=== PATIENT | male | born 1945 | race Caucasian/White ===

== ENCOUNTER 2016-10-24 21:18 | Inpatient (IN) | payer MEDICARE, OTHER ==
--- NOTE | ~2016-10-24 | EGD ---
EGD REPORT [facility] [address] [place]. [address] NAME: LIUDMILA APARICIO : [birth year] STATUS : ADM IN PAT#: [id number] AGE: 71 ADM/REG DATE : 10/25/16 MR#: [id number] REPORT SERV DATE: 10/29/16 DICTATED BY: STACIE WHEELER DATE: 10/29/16 REPORT STATUS : Draft TRANSCRIBED BY: [employer] DATE: 10/29/16 [facility] Patient Name: iLudmila Aparicio Date of : 1945 Attending MD: STACIE WHEELER, Procedure Date No Time: 10/29/2016 Procedure: Upper GI endoscopy Indications: Dysphagia Medicines: Monitored Anesthesia Care Complications: No immediate complications. Estimated blood loss: None. Procedure: Pre-Anesthesia Assessment: - ASA Grade Assessment: III - A patient with severe systemic disease. After obtaining informed consent, the endoscope was passed under direct vision. Throughout the procedure, the patient's blood pressure, pulse, and oxygen saturations were monitored continuously. The GIF [id number] was introduced through the mouth, and advanced to the second part of duodenum. The upper GI endoscopy was accomplished without difficulty. The patient tolerated the procedure well. Findings: LA Grade D (one or more mucosal breaks involving at least 75% of esophageal circumference) esophagitis with no bleeding was found in the entire esophagus. Biopsies were taken with a cold forceps for histology. Verification of patient identification for the specimen was done. Estimated blood loss was minimal. A 4 cm hiatus hernia was present. The exam of the stomach was otherwise normal. The cardia and gastric fundus were normal on retroflexion. The examined duodenum was normal. Impression: - LA Grade D esophagitis. Biopsied. - Hiatus hernia. - Normal examined duodenum. Recommendation: - Return to previous diet. - Continue present medications. - Use Protonix (pantoprazole) 40 mg PO BID. - Await pathology results. R/o Viral esophagitis. Procedure Code(s): --- Professional --- 17190, Esophagogastroduodenoscopy, flexible, transoral; with biopsy, single or multiple EGD REPORT [facility] [address] [place] [address] [place] [address] NAME: LIUDMILA APARICIO : [birth year] STATUS : ADM IN [facility]#: [id number] AGE: 71 ADM/REG DATE : 10/25/16 MR#: [id number] REPORT SERV DATE: 10/29/16 DICTATED BY: STACIE WHEELER DATE: 10/29/16 REPORT STATUS : Draft TRANSCRIBED BY: [employer] DATE: 10/29/16 Diagnosis Code(s): --- Professional --- K20.9, Esophagitis, unspecified K44.9, Diaphragmatic hernia without obstruction or gangrene R13.10, Dysphagia, unspecified CPT copyright 2013 [employer]. All rights reserved. The codes documented in this report are preliminary and upon health information coder review may be revised to meet current compliance requirements. STACIE WHEELER, 10/29/2016 1:46 PM Number of Addenda: 0 Note Initiated On: 10/29/2016 1:20 PM Scope Withdrawal Time 0 hours 0 minutes 0 seconds [address] [place] [address]
--- NOTE | ~2016-10-24 | DS ---
Discharge Summary [facility] [address] [place]. [address] NAME: LIUDMILA DAIGLE : 41 STATUS : DIS IN PAT#: [id number] AGE: 71 ADM/REG DATE : 10/25/16 MR#: [id number] REPORT SERV DATE: 10/30/16 DICTATED BY: SONIA HERNANDEZ DATE: 10/30/16 REPORT STATUS : Draft TRANSCRIBED BY: MODL DATE: 10/30/16 ADMISSION DATE: 10/25/2016 DISCHARGE DATE: 10/30/2016 TRACK SUBWAY REPAIR SUPERVISOR: Dr. Brittny FERRER. DISCHARGE DIAGNOSES: 1. Functional quadriparesis due to acute severe flare-up of rheumatoid arthritis. 2. Acute severe flare-up of rheumatoid arthritis. 3. Acute esophagitis. 4. Anemia of chronic disease. 5. Sacral decubitus present on admission. 6. Severe protein-calorie malnutrition. HISTORY: This gentleman's two years ago. His brother last March. He has been anorexic, discouraged and he developed severe pain in his MCPs, wrists, elbows, shoulders, knees, had gotten to where he could hardly do anything other than lay in the bed or sit on the couch. His sister has been trying to get him to come to the hospital and he finally did present to the emergency room at [facility]. At that time, his white count was 18.[address] of the abdomen showed some possible thickening of the gallbladder. He is referred to our team for inpatient care. Initially, there was concern that he might have sepsis. His procalcitonin initially was 0.92. His white count quickly came down from 18 to 15 to 13 and normalized. Urinalysis had 6 white blood cells, protein of 30, small amount of bilirubin, blood culture with no growth. He had a pressure sore on his sacrum, which was present on admission. Gallbladder ultrasound revealed sludge in the gallbladder with mild thickening of the gallbladder wall. No pericholecystic fluid. Negative Webb sign. No biliary duct dilatation. Vascular calcifications suspected in the right kidney. CT scan of the brain showed marked cerebral atrophy. No acute abnormalities. The patient had a chest x-ray on admission, which was unremarkable. The patient was noted to have severe pain in his MCPs, wrists, elbows, shoulders. Rheumatoid factor was elevated at 2580. The patient was started by our partner on some prednisone with dramatic improvement in his pain in his joints and he started to be able to move his hands, wrists, elbows, and shoulders, although he did still have a moderate amount of pain in his right shoulder. X-ray of the right shoulder showed no dislocation or fracture. No erosive changes. He was noted to have severe protein-calorie malnutrition. Pre-albumin was 8.6, serum albumin 1.1. He is given nutrition and supplements, and his appetite has improved significantly here. He was noted to have anemia with his hemoglobin around 8.5. His iron level was normal at 47, percent iron saturation elevated at 53, TIBC was low at 88, ferritin elevated at 739, B12 normal at 530. RPR nonreactive. HIV negative. TSH normal at 1.060. Renal function normal. This is consistent with anemia of chronic disease and probably Discharge Summary [address] [place]. [address] NAME: LIUDMILA DAIGLE : 41 STATUS : DIS IN PAT#: [id number] AGE: 71 ADM/REG DATE : 10/25/16 MR#: [id number] REPORT SERV DATE: 10/30/16 DICTATED BY: SONIA HERNANDEZ DATE: 10/30/16 REPORT STATUS : Draft TRANSCRIBED BY: [employer] DATE: 10/30/16 related to his rheumatoid arthritis, it has been uncontrolled. It is also aggravated probably by his nutritional deficits. He is felt to need inpatient care. He was having some vague dysphagia-type symptoms, so he was seen by GI and Dr. Mart did an EGD on 10/29/2016 showing LA grade D esophagitis with hiatal hernia. They recommended Protonix 40 mg b.i.d. and Carafate slurry for two weeks. They will follow up the biopsy results and let the patient and his providers know if there are any problems with that. Because of his weakness, he needs inpatient rehab. Those arrangements have been made at this time. DISCHARGE MEDICATIONS: Melatonin 6 mg at bedtime p.r.n., Protonix 40 mg b.i.d., Carafate 1 g a.c. and h.s. as a slurry for two weeks, prednisone 20 mg daily for his rheumatoid arthritis, Tylenol 650 q.4 hours p.r.n. mild pain. Twenty five minutes were spent with the patient and with discharge planning. SAMMY/TRINITY Sonia Hernandez M.D. / [id number] CC: Sonia Hernandez M.D. [facility] Joel Mart MD
--- NOTE | ~2016-10-24 | HP ---
History And Physical [place] [id number] [place]. [address] NAME: LIUDMILA DAIGLE : [birth year] STATUS : ADM IN PAT#: [id number] AGE: 71 ADM/REG DATE : 10/25/16 MR#: [id number] REPORT SERV DATE: 10/25/16 DICTATED BY: LEVI SHIPMAN DATE: 10/25/16 REPORT STATUS : Draft TRANSCRIBED BY: MODL DATE: 10/25/16 DATE OF ADMISSION: 10/25/2016 CHIEF COMPLAINT: A 71-year-old male with really no past medical history and no primary care physician, now presenting with increasing debilitation and inability to get out of the bed with sacral decubitus ulcer and increasing arthritis. HISTORY OF PRESENT ILLNESS: The patient's history was obtained through an interview with the patient and sister. There were no previous medical records to review. The patient's about two years ago, and then his brother in March of 2016. Both of these events have caused a decline in the patient's overall will to live, it seems, and his mental and physical health. The patient's simply says "sometimes I just do not care." He has lost about 20 pounds in the last six months alone. He has a very poor appetite. He has mostly been lying in his bed or sitting in a couch but then for the last two weeks straight, he has been unable to get out of the bed at all. His sister has been visiting him to urge him to come to the hospital or see his doctor, but he has refused until the night of admission, and he states that he wonders if he needs to go to a nursing facility to be cared for. He has noticed soreness under his sacrum. He did not know that he had an ulceration there. It only hurts minimally. His main complaint has been increasing arthritis over the last several months. He thinks that it mostly affects his knees, but it also affects the hips and the shoulders but also "all over," the patient seeming to imply that practically every joint of his body aches to some degree. He describes it as a 10/10 severity and an aching stiff quality. He has had no abdominal pain. No chest pain. He describes dyspnea on exertion with a slight nonproductive cough. No change of bowel or bladder habit. No headache. One complaint has been dysphagia with difficulty swallowing with no pain. REVIEW OF SYSTEMS: Otherwise, a 14-point review of systems was obtained and was negative. PAST MEDICAL HISTORY: 1. Arthritis. 2. No cardiac disease, no lung disease. PAST SURGICAL HISTORY: Ankle surgery. History And Physical [place] [address] [place]. [address] NAME: ILUDMILA DAIGLE : [birth year] STATUS : ADM IN [facility]#: [id number] AGE: 71 ADM/REG DATE : 10/25/16 MR#: [id number] REPORT SERV DATE: 10/25/16 DICTATED BY: LEVI SHIPMAN DATE: 10/25/16 REPORT STATUS : Draft TRANSCRIBED BY: [employer]ITY DATE: 10/25/16 ALLERGIES: NO KNOWN DRUG ALLERGIES. SOCIAL HISTORY: The patient is a smoker. Does not drink alcohol. His two years ago. His brother in March 2016. He lives alone. 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 Lives in [place], [place]. His sister is supportive and looks after him as best she can. He has no biological children. FAMILY HISTORY: Brother of a myocardial infarction. Father likely suffered from depression, mother with Alzheimer's dementia. CURRENT MEDICATIONS: PRN Aleve. PHYSICAL EXAMINATION: VITAL SIGNS: Temperature 97.6, pulse 109, blood pressure 124/73, respiratory rate 15, O2 saturation 96% on room air. GENERAL: A chronically ill-appearing male, even cachectic in appearance, but in no evidence of acute distress at this time. HEENT: The patient has sunken eyes. Pupils equal, round, and reactive to light. No conjunctival pallor. No scleral icterus. Nares are patent. Oropharynx is clear of obstruction. Dry mucous membranes. NECK: Trachea midline. No thyromegaly. LYMPH: No cervical lymphadenopathy. No supraclavicular lymphadenopathy. No inguinal lymphadenopathy. RESPIRATORY: Clear to auscultation at bases. No wheezes, rales, or rhonchi. Normal respiratory effort. CARDIOVASCULAR: Tachycardic, regular rhythm. No murmurs, rubs, or gallops. No extremity edema is appreciated. ABDOMEN: Minimal epigastric and right upper quadrant abdominal pain but by no means guarding. No rebound. Nondistended. No hepatosplenomegaly. DERMATOLOGICAL: The patient's sacrum has an ulceration with about a centimeter area of purulent drainage but also has surrounding eschar, necrotic skin, and surrounding erythema, heat, swelling, and tenderness. Also chronic-appearing ulceration on his right ankle but without surrounding erythema or purulent drainage. Otherwise, warm and dry extremities. No pallor. No cyanosis. PSYCHIATRIC: Notably flat affect. He admits to feeling depressed with anhedonia but no suicidal ideation. He is alert, appropriate, oriented x3. LABORATORY DATA: White blood cell count 18.9, hemoglobin 11, hematocrit 36, platelets 465. Sodium 141, potassium 3.9, chloride 105, bicarb 27, BUN 24, creatinine 0.6, glucose 151. Urinalysis negative for infection. Procalcitonin 0.9. Albumin 1.3. Troponin 0.67. Lactic acid 1.8. Total bilirubin 1.4. Alkaline phosphatase 155, AST 62. Urine drug screen negative. Influenza negative. Urinalysis negative for infection. STUDIES: 1. CT scan of the abdomen shows possible thickening of the gallbladder? 2. EKG by my own evaluation shows sinus tachycardia. 3. Chest x-ray by my own evaluation shows no acute cardiopulmonary process. History And Physical [address] [address] NAME: LIUDMILA DAIGLE : [birth year] STATUS : ADM IN [facility]#: [id number] AGE: 71 ADM/REG DATE : 10/25/16 MR#: [id number] REPORT SERV DATE: 10/25/16 DICTATED BY: LEVI SHIPMAN DATE: 10/25/16 REPORT STATUS : Draft TRANSCRIBED BY: [employer]ITY DATE: 10/25/16 ASSESSMENT AND PLAN: 1. Sepsis with white blood cell count of 18.9 and tachycardia. Check blood cultures. Check wound cultures. Place on IV vancomycin, IV Rocephin. 2. Sacral decubitus ulcer with cellulitis. Check wound culture. Obtain a Wound Care consult. Turn q.2 hours. 3. Abnormal gallbladder. Check an ultrasound of the gallbladder to further evaluate. Consider Surgery consult? Noted the patient has elevated liver enzymes, so we will follow these. 4. Functional paraplegia. Obtain a physical therapy evaluation. 5. Dysphagia. Obtain a speech therapy evaluation for swallowing. 6. Arthritis. Check an ESR. Should we consider PMR in the differential diagnosis? 7. Hypoalbuminemia. Check prealbumin and obtain a Nutrition consult. KPL/MODL Levi Shipman M.D. / [id number]
[2016-10-24 20:09] LABS: BASOPHILS 0.2 %; BASOPHILS ABSOLUTE 0.03 10/3/uL (0.0-0.16); EOSINOPHILS 0.1 %; EOSINOPHILS ABSOLUTE 0.02 10/3/uL (0.0-0.53); ER CBC TAT 0 Hrs 11 Mins; HEMATOCRIT 36.3 % (40.0-51.0); HEMOGLOBIN 11.5 g/dL (13.6-17.8); IMMATURE GRANULOCYTES 0.6 %; IMMATURE GRANULOCYTES ABSOLUTE 0.11 10/3/uL (0.0-0.11); LYMPHOCYTES 10.2 %; LYMPHOCYTES ABSOLUTE 1.93 10/3/uL (0.67-4.30); MEAN CORPUS HGB CONC 31.7 g/dL (32.0-36.0); MEAN CORPUSCULAR HEMOGLOB 27.4 pg (26.0-34.0); MEAN CORPUSCULAR VOLUME 86.4 fL (80-100); MEAN PLATELET VOLUME 10.5 fL (9.2-13.0); MONOCYTES 4.2 %; NEUTROPHILS 84.7 %; NEUTROPHILS ABSOLUTE 16.01 10/3/uL (2.02-8.40); PLATELET COUNT 465 10/3/uL (150-400); WHITE BLOOD CELLS 18.9 10/3/uL (4.5-10.5)
[2016-10-24 20:10] LABS: MANUAL DIFF NO %
[2016-10-24 20:16] LABS: INTERNATIONAL NORMAL RATI 1.3 UNITS (-); PROTIME (NOT ORD) 15.8 SEC (12.0-14.5)
[2016-10-24 20:29] LABS: ALBUMIN 1.3 G/DL (3.5-5.0); ALKALINE PHOSPHATASE 155 U/L (45-117); BUN (BLOOD UREA NITROGEN) 24 MG/DL (6-23); CALCIUM, SERUM 7.8 MG/DL (8.5-10.4); CHLORIDE, SERUM 105 MMOL/L (96-112); CO2 (CARBON DIOXIDE) 27 MMOL/L (24-34); CREATININE 0.57 MG/DL (0.70-1.30); DIRECT BILIRUBIN 0.9 MG/DL (0.0-0.4); GFR AFRICAN AMERICAN 118 ML/MIN (>=60); GFR NON AFRICAN AMERICAN 102 ML/MIN (>=60); GLUCOSE, SERUM 151 MG/DL (60-99); INDIRECT BILIRUBIN(NOT ORDER) 0.5 MG/DL (0.1-0.9); POTASSIUM, SERUM 3.9 MMOL/L (3.5-5.3); SGOT(AST) 62 U/L (5-40); SGPT(ALT) 40 U/L (5-65); SODIUM, SERUM 141 MMOL/L (135-148); TOTAL BILIRUBIN 1.4 MG/DL (0-1.2); TOTAL PROTEIN 6.4 G/DL (6.0-8.5)
[2016-10-24 20:34] LABS: ACETAMINOPHEN LEVEL (TYLENOL) < 2.0 MCG/ML (10.0-20.0); CHEST PAIN PROFILE TAT 0 Hrs 36 Mins; SALICYLATE < 1.7 MG/DL (-); TROPONIN I 0.67 NG/ML (<0.05)
[2016-10-24 20:35] LABS: ALCOHOL < 10 MG/DL (0)
[2016-10-24 20:55] LABS: INFLUENZA A SCREEN NEGATIVE (NEGATIVE); INFLUENZA B SCREEN NEGATIVE (NEGATIVE)
[2016-10-24 21:03] LABS: SEGMENTED NEUTROPHIL (0) 88 %; TOTAL NUCLEATED CELLS 100
[2016-10-24 21:10] LABS: ANISOCYTOSIS 1+ (5-10/OIF) (0-5/OIF); BAND NEUTROPHILS 2 %; BASOPHILS 1 %; BASOPHILS ABSOLUTE (CALC) 0.19 10/3/uL (0.0-0.16); ER DIFF TAT 1 Hrs 05 Mins; LYMPHOCYTES 6 %; LYMPHOCYTES ABSOLUTE (CALC) 1.13 10/3/uL (0.67-4.30); MONOCYTES 3 %; MONOCYTES ABSOLUTE (CALC) 0.57 10/3/uL (0.21-1.20); NEUTROPHILS ABSOLUTE (CALC) 17.01 10/3/uL (2.02-8.40); POIKILOCYTOSIS 1+ (5-10/OIF) (0-5/OIF)
[2016-10-24 21:11] LABS: PLATELET ESTIMATE SLT INC (ADEQUATE)
[2016-10-24] MEDS ORDERED: ALEVE220 MG PO (21:46)
[2016-10-24 21:59] LABS: PROCALCITONIN 0.92 ng/mL (<0.5)
[2016-10-24 22:27] LABS: CPK (IF ELEVATED MB BANDS) 107 U/L (0-200)
[2016-10-24 22:54] LABS: LACTATE 1.8 MMOL/L (0.3-2.4)
[2016-10-25 00:18] LABS: ASCORBIC ACID (UR NOT ORDER) NEG (NEG); BILIRUBIN, URINE SMALL (NEG); ER URINALYSIS TAT 0 Hrs 00 Mins; KETONE, URINE NEGATIVE (NEG); LEUKOCYTE ESTERASE(NOT OR NEG (NEG); NITRITE (URINE) NEG (NEG); WBC (NOT ORDERED) (RFLEX) 6 (0-5)
[2016-10-25 04:51] LABS: AMPHETAMINES (NOT ORD) NEG (NEG); BARBITURATES (NOT ORDERED NEG (NEG); BENZODIAZEPINES (NOT ORD) NEG (NEG); CANNABINOIDS (THC) NEG (NEG); COCAINE (NOT ORDERED) NEG (NEG); OPIATES NEG (NEG); PHENCYCLIDINE(PCP) NEG (NEG); TRICYCLICS NEG (NEG)
[2016-10-25 09:14] LABS: BASOPHILS 0.2 %; BASOPHILS ABSOLUTE 0.03 10/3/uL (0.0-0.16); EOSINOPHILS 1.1 %; EOSINOPHILS ABSOLUTE 0.17 10/3/uL (0.0-0.53); IMMATURE GRANULOCYTES 0.6 %; LYMPHOCYTES 10.8 %; LYMPHOCYTES ABSOLUTE 1.68 10/3/uL (0.67-4.30); MEAN CORPUS HGB CONC 31.9 g/dL (32.0-36.0); MEAN CORPUSCULAR HEMOGLOB 26.9 pg (26.0-34.0); MEAN CORPUSCULAR VOLUME 84.3 fL (80-100); MEAN PLATELET VOLUME 10.2 fL (9.2-13.0); MONOCYTES 6.1 %; MONOCYTES ABSOLUTE 0.95 10/3/uL (0.21-1.20); NEUTROPHILS 81.2 %; NEUTROPHILS ABSOLUTE 12.68 10/3/uL (2.02-8.40); PLATELET COUNT 390 10/3/uL (150-400); RBC DISTRIBUTION WIDTH 17.9 % (12.0-16.0); WHITE BLOOD CELLS 15.6 10/3/uL (4.5-10.5)
[2016-10-25 09:16] LABS: HEMATOCRIT 27.9 % (40.0-51.0); HEMOGLOBIN 8.9 g/dL (13.6-17.8); MANUAL DIFF NO %; RED CELL COUNT 3.31 10/6/uL (4.7-6.1)
[2016-10-25 09:17] LABS: INTERNATIONAL NORMAL RATI 1.2 UNITS (-); PARTIAL THROMBO TIME 24.5 SEC (22.5-37.2); PROTIME (NOT ORD) 15.3 SEC (12.0-14.5)
[2016-10-25 09:31] LABS: A/G RATIO 0.3 (0.7-1.9); ALBUMIN 1.1 G/DL (3.5-5.0); ALKALINE PHOSPHATASE 130 U/L (45-117); BUN (BLOOD UREA NITROGEN) 19 MG/DL (6-23); CALCIUM, SERUM 7.3 MG/DL (8.5-10.4); CHLORIDE, SERUM 111 MMOL/L (96-112); CO2 (CARBON DIOXIDE) 23 MMOL/L (24-34); CPK 62 U/L (0-200); CREATININE 0.29 MG/DL (0.70-1.30); GFR AFRICAN AMERICAN 156 ML/MIN (>=60); GFR NON AFRICAN AMERICAN 134 ML/MIN (>=60); GLUCOSE, SERUM 85 MG/DL (60-99); POTASSIUM, SERUM 3.7 MMOL/L (3.5-5.3); PREALBUMIN 8.6 MG/DL (17.0-43.0); SGOT(AST) 58 U/L (5-40); SGPT(ALT) 34 U/L (5-65); SODIUM, SERUM 144 MMOL/L (135-148); TOTAL BILIRUBIN 1.1 MG/DL (0-1.2); TOTAL PROTEIN 5.1 G/DL (6.0-8.5)
[2016-10-25 09:50] LABS: SED RATE 91 MM/HR (0-15)
[2016-10-26 06:30] LABS: BASOPHILS 0.2 %; BASOPHILS ABSOLUTE 0.02 10/3/uL (0.0-0.16); EOSINOPHILS 1.2 %; EOSINOPHILS ABSOLUTE 0.15 10/3/uL (0.0-0.53); HEMATOCRIT 29.5 % (40.0-51.0); HEMOGLOBIN 9.1 g/dL (13.6-17.8); IMMATURE GRANULOCYTES 0.5 %; IMMATURE GRANULOCYTES ABSOLUTE 0.06 10/3/uL (0.0-0.11); LYMPHOCYTES 14.1 %; LYMPHOCYTES ABSOLUTE 1.84 10/3/uL (0.67-4.30); MEAN CORPUS HGB CONC 30.8 g/dL (32.0-36.0); MEAN CORPUSCULAR HEMOGLOB 26.8 pg (26.0-34.0); MEAN CORPUSCULAR VOLUME 86.8 fL (80-100); MEAN PLATELET VOLUME 10.3 fL (9.2-13.0); MONOCYTES 6.5 %; MONOCYTES ABSOLUTE 0.85 10/3/uL (0.21-1.20); NEUTROPHILS 77.5 %; NEUTROPHILS ABSOLUTE 10.09 10/3/uL (2.02-8.40); PLATELET COUNT 420 10/3/uL (150-400); RBC DISTRIBUTION WIDTH 18.1 % (12.0-16.0)
[2016-10-26 06:31] LABS: MANUAL DIFF NO %
[2016-10-26 06:38] LABS: BUN (BLOOD UREA NITROGEN) 15 MG/DL (6-23); CALCIUM, SERUM 7.3 MG/DL (8.5-10.4); CHLORIDE, SERUM 110 MMOL/L (96-112); CO2 (CARBON DIOXIDE) 23 MMOL/L (24-34); CREATININE 0.23 MG/DL (0.70-1.30); GFR AFRICAN AMERICAN 171 ML/MIN (>=60); GFR NON AFRICAN AMERICAN 148 ML/MIN (>=60); GLUCOSE, SERUM 80 MG/DL (60-99); POTASSIUM, SERUM 3.5 MMOL/L (3.5-5.3); SODIUM, SERUM 145 MMOL/L (135-148)
[2016-10-27 06:14] LABS: BASOPHILS 0.3 %; BASOPHILS ABSOLUTE 0.03 10/3/uL (0.0-0.16); HEMATOCRIT 27.4 % (40.0-51.0); HEMOGLOBIN 8.6 g/dL (13.6-17.8); IMMATURE GRANULOCYTES 0.5 %; IMMATURE GRANULOCYTES ABSOLUTE 0.05 10/3/uL (0.0-0.11); LYMPHOCYTES 21.2 %; LYMPHOCYTES ABSOLUTE 2.09 10/3/uL (0.67-4.30); MEAN CORPUS HGB CONC 31.4 g/dL (32.0-36.0); MEAN CORPUSCULAR HEMOGLOB 27.4 pg (26.0-34.0); MEAN CORPUSCULAR VOLUME 87.3 fL (80-100); MEAN PLATELET VOLUME 10.1 fL (9.2-13.0); MONOCYTES 8.2 %; MONOCYTES ABSOLUTE 0.81 10/3/uL (0.21-1.20); NEUTROPHILS 67.8 %; NEUTROPHILS ABSOLUTE 6.66 10/3/uL (2.02-8.40); PLATELET COUNT 435 10/3/uL (150-400); RBC DISTRIBUTION WIDTH 18.2 % (12.0-16.0); RED CELL COUNT 3.14 10/6/uL (4.7-6.1); WHITE BLOOD CELLS 9.8 10/3/uL (4.5-10.5)
[2016-10-27 06:16] LABS: MANUAL DIFF NO %
[2016-10-27 06:23] LABS: BUN (BLOOD UREA NITROGEN) 13 MG/DL (6-23); CALCIUM, SERUM 7.1 MG/DL (8.5-10.4); CHLORIDE, SERUM 111 MMOL/L (96-112); CO2 (CARBON DIOXIDE) 25 MMOL/L (24-34); CREATININE 0.21 MG/DL (0.70-1.30); GFR AFRICAN AMERICAN 178 ML/MIN (>=60); GFR NON AFRICAN AMERICAN 154 ML/MIN (>=60); GLUCOSE, SERUM 89 MG/DL (60-99); POTASSIUM, SERUM 3.3 MMOL/L (3.5-5.3); SODIUM, SERUM 147 MMOL/L (135-148)
[2016-10-27 11:03] LABS: ANA TITER <1:40 TITER
[2016-10-28 05:25] LABS: BUN (BLOOD UREA NITROGEN) 13 MG/DL (6-23); CALCIUM, SERUM 7.1 MG/DL (8.5-10.4); CHLORIDE, SERUM 108 MMOL/L (96-112); CO2 (CARBON DIOXIDE) 25 MMOL/L (24-34); CREATININE 0.23 MG/DL (0.70-1.30); GFR AFRICAN AMERICAN 171 ML/MIN (>=60); GFR NON AFRICAN AMERICAN 148 ML/MIN (>=60); GLUCOSE, SERUM 87 MG/DL (60-99); POTASSIUM, SERUM 3.7 MMOL/L (3.5-5.3); SODIUM, SERUM 143 MMOL/L (135-148)
[2016-10-28 05:27] LABS: BASOPHILS 0.2 %; BASOPHILS ABSOLUTE 0.02 10/3/uL (0.0-0.16); EOSINOPHILS 1.6 %; EOSINOPHILS ABSOLUTE 0.17 10/3/uL (0.0-0.53); HEMATOCRIT 26.5 % (40.0-51.0); HEMOGLOBIN 8.4 g/dL (13.6-17.8); IMMATURE GRANULOCYTES 0.3 %; IMMATURE GRANULOCYTES ABSOLUTE 0.03 10/3/uL (0.0-0.11); LYMPHOCYTES 24.4 %; LYMPHOCYTES ABSOLUTE 2.65 10/3/uL (0.67-4.30); MEAN CORPUS HGB CONC 31.7 g/dL (32.0-36.0); MEAN CORPUSCULAR HEMOGLOB 27.5 pg (26.0-34.0); MEAN CORPUSCULAR VOLUME 86.6 fL (80-100); MEAN PLATELET VOLUME 10.2 fL (9.2-13.0); MONOCYTES 7.8 %; MONOCYTES ABSOLUTE 0.85 10/3/uL (0.21-1.20); NEUTROPHILS 65.7 %; NEUTROPHILS ABSOLUTE 7.15 10/3/uL (2.02-8.40); PLATELET COUNT 454 10/3/uL (150-400); RBC DISTRIBUTION WIDTH 18.4 % (12.0-16.0); RED CELL COUNT 3.06 10/6/uL (4.7-6.1); WHITE BLOOD CELLS 10.9 10/3/uL (4.5-10.5)
[2016-10-28 05:32] LABS: MANUAL DIFF NO %
[2016-10-28 16:39] LABS: % IRON SAT 53 % (20-50); FERRITIN 739 NG/ML (26-388); IRON BINDING CAPACITY 88 MCG/DL (250-450); IRON, SERUM 47 MCG/DL (35-150)
[2016-10-28 16:41] LABS: TROPONIN I 0.16 NG/ML (<0.05)
[2017-03-09] MEDS ORDERED: MELA3 PO (13:50)
[2017-03-09] MEDS ORDERED: CALTRA600D PO (13:50)
[2017-03-09] MEDS ORDERED: VITC500 PO (13:51)
[2017-03-09] MEDS ORDERED: VITAMIN D31000 UNIT PO (13:51)
[2017-03-09] MEDS ORDERED: MULTIVITAMI1 PO (13:51)
[2017-03-09] MEDS ORDERED: REM15 PO (13:52)
[2017-03-09] MEDS ORDERED: P10 PO (13:52)
[2017-03-09] MEDS ORDERED: EFFEX75 PO (13:53)
[2017-03-09] MEDS ORDERED: ALBUTEROL NEBULIZER (13:54)
[2017-03-09] MEDS ORDERED: NORCO1 TA1 PO (13:55)
[2017-03-09] MEDS ORDERED: SINGULAIR1 PO (13:56)
[2017-03-09] MEDS ORDERED: ASA5GR PO (13:57)
[2017-03-09] MEDS ORDERED: LOP25 PO (13:57)
[2017-03-09] MEDS ORDERED: RANITIDINE300 MG PO (13:58)
== END 2016-10-30 15:47 | DRG 545 ==
LOC: ER 21:18 → 1SO 10-25 00:44
PROVIDERS: Hospitalist; Internal Medicine Gastroenterology; Nurse Practitioner
PROC: 0DB58ZX Excision of Esophagus, Via Natural or Artificial Opening Endoscopic, Diagnostic (ICD-10-PCS; principal; 2016-10-29 13:37)
DX: M05.79 Rheumatoid arthritis with rheumatoid factor of multiple sites without organ or systems involvement (principal); E43 Unspecified severe protein-calorie malnutrition; R53.2 Functional quadriplegia; R65.10 Systemic inflammatory response syndrome (SIRS) of non-infectious origin without acute organ dysfunction; L03.317 Cellulitis of buttock; Z68.1 Body mass index [BMI] 19.9 or less, adult; L89.152 Pressure ulcer of sacral region, stage 2; J44.9 Chronic obstructive pulmonary disease, unspecified; E88.09 Other disorders of plasma-protein metabolism, not elsewhere classified; L89.511 Pressure ulcer of right ankle, stage 1; R13.10 Dysphagia, unspecified; R62.7 Adult failure to thrive; D63.8 Anemia in other chronic diseases classified elsewhere; K20.9 Esophagitis, unspecified; K44.9 Diaphragmatic hernia without obstruction or gangrene; F17.210 Nicotine dependence, cigarettes, uncomplicated; Z23 Encounter for immunization; Z91.81 History of falling
CPT/HCPCS: 70450; 71010; 73030-RT; 74176; 74230; 76705; 80048; 80053; 80076; 80202; 80305; 80307; 81001; 82550; 82607; 82728; 82962; 83540; 83550; 83605; 83690; 83735; 83880; 84134; 84145; 84443; 84484; 85025; 85610; 85652; 85730; 86039; 86431; 86592; 87040; 87070; 87077; 87186; 87205; 87389; 87804; 88305; 90662; 92611-GN; 93005; 96374; 97110-GP; 97116-GP; 97162-GP; 97165-GO; 97530-GP; 99285; A9270-GY; G0008; G8978-CL-GP; G8979-CJ-GP; G8987-CK-GO; G8988-CJ-GO; G8996-CK-GN; G8997-CK-GN; G8998-CK-GN; J3370